=== PATIENT | male | born 1965 | race Caucasian/White ===

== ENCOUNTER 2019-11-22 10:44 | Emergency (ER) | payer MEDICAID ==
[~2019-11-22] VITALS: Ht 167.6 cm; Wt 64.0 kg
[2019-11-22] MEDS ORDERED: ACETAMINOPHEN WITH CODEINE 300/30MG TABLET PO ONE (12:00)
[2019-11-22 13:44] VITALS: BP 119/82
== END 2019-11-22 13:47 | disposition home or self-care (01) ==
LOC: ER 10:44
DX: S63.92XA Sprain of unspecified part of left wrist and hand, initial encounter (principal); Z98.890 Other specified postprocedural states; W22.03XA Walked into furniture, initial encounter; Y93.89 Activity, other specified; Y92.89 Other specified places as the place of occurrence of the external cause
CPT/HCPCS: 29125; 73130; 99283